=== PATIENT | male | born 1995 | race African-American/Black ===

== ENCOUNTER 2017-06-23 17:26 | Emergency (ER) | payer OTHER ==
[~2017-06-23] VITALS: Ht 170.2 cm; Wt 108.9 kg
--- NOTE | ~2017-06-23 | CR169 ---
[facility] A Service of [facility] RADIOLOGY TEXT RESULTS PATIENT: YVES DESAI LOCATION: [place] : [birth year] UNIT #: [id number] AGE: [address]: Rosanne Ya APRN SEX: M ORDER DR: [id number] [facility] [address] [place], [place] [address] [id number] E MR#: [id number] Acc #: [id number] NAME: YVES DESAI : 1995 SEX: M STUDY DATE/TIME: 06/23/2017 18:51 UNIT: [facility] ROOM: STUDY DESCRIPTION: CR Knee 2 Views Lt Attending Physician: Rosanne Ya A.P.R.N. Ordering Physician: Andrew Blanco M.D. Primary Care Physician: Primary Care Physician No MEDICAL IMAGING REPORT This report is preliminary unless electronic signature is present EXAM Two views left knee 06/23/2017 HISTORY Left knee pain, bumped it today. Stiffness. Pain medially, laterally and anteriorly. COMPARISON None. FINDINGS AP and lateral projection of the knee shows smooth articular anatomy without indication of fracture or dislocation at the major weight-bearing surface of the knee. There is no indication of radiopaque foreign body about the knee surface or joint effusion. IMPRESSION Normal knee. Dictated by... Chayo Clark M.D. THIS IS AN ELECTRONICALLY VERIFIED REPORT Chayo Clark M.D. at 06/25/2017 6:16 AM JONNA/deanna TD: 06/25/2017 06:10 JOB #: [id number] MEDICAL IMAGING REPORT Page 1 of 1 COPY
== END 2017-06-23 19:40 | disposition home or self-care (01) ==
LOC: CFTX 17:26 → CED 17:26 → CFTX 19:04
DX: S80.02XA Contusion of left knee, initial encounter (principal); F17.200 Nicotine dependence, unspecified, uncomplicated; W22.8XXA Striking against or struck by other objects, initial encounter; Y92.410 Unspecified street and highway as the place of occurrence of the external cause
CPT/HCPCS: 73560; 99283